=== PATIENT | male | born 1965 | race Hispanic/Latino ===

== ENCOUNTER 2019-10-10 15:25 | Emergency (ER) | payer MEDICAID ==
[2019-10-10] MEDS ORDERED: KETOROLAC TROMETHAMINE 60 MG/2 ML VIAL ONE (16:48)
[2019-10-10] MEDS ORDERED: DEXAMETHASONE SOD PHOSPHATE 10MG/ML 1ML VIAL ONE (17:27)
== END 2019-10-10 17:40 | disposition home or self-care (01) ==
LOC: EDH 15:25
DX: M06.861 Other specified rheumatoid arthritis, right knee (principal); M25.461 Effusion, right knee; M17.11 Unilateral primary osteoarthritis, right knee; F31.9 Bipolar disorder, unspecified; Z72.0 Tobacco use; Z98.890 Other specified postprocedural states
CPT/HCPCS: 29505; 73562; 96372 ×2; 99284; J1100; J1885